=== PATIENT | male | born 1990 | race Caucasian/White ===

== ENCOUNTER 2021-04-26 12:14 | Emergency (ER) | payer SELFPAY | END 2021-04-26 15:55 | disposition home or self-care (01) | LOC: ER1 12:14 | DX: U07.1 COVID-19 (principal) | CPT/HCPCS: 0240U; 71045; 99285 ==

== ENCOUNTER 2021-05-30 15:40 | Emergency (ER) | payer OTHER ==
[2021-05-30 16:28] LABS: HEMOGLOBIN 16.9 gm/dl (14.0-17.5); RED BLOOD COUNT 5.16 M/UL (4.20-5.50)
[2021-05-30 16:50] LABS: BUN/CREATININE RATIO 7 (0-10)
== END 2021-05-30 17:35 | disposition home or self-care (01) ==
LOC: ER1 15:40
PROVIDERS: Physician Assistant
DX: F41.9 Anxiety disorder, unspecified (principal)
CPT/HCPCS: 80053; 82550; 82553; 84484; 85025; 93005; 96374; 99284; J2060